=== PATIENT | female | born 1985 | race Caucasian/White ===

== ENCOUNTER 2017-08-03 17:52 | Emergency (ER) | payer SELFPAY ==
[~2017-08-03] VITALS: Ht 165.1 cm; Wt 83.9 kg
[2017-08-03] MEDS ORDERED: AMIT50TA3 (18:18)
[2017-08-03] MEDS ORDERED: LISI10TA2 (18:18)
[2017-08-03] MEDS ORDERED: AMLO5TAB2 (18:18)
--- NOTE | 2017-08-03 18:33 | ED Hip Pain/Injury ---
General Chief Complaint: Hip/Pelvic Problems Stated Complaint: LEFT HIP PAIN History of Present Illness Time seen by provider: 18:15 Initial Comments Patient reports chronic history of left hip pain. Became acutely worse in the last 24 hours. She denies any injury. She's had no analgesics prior to arrival. She reports all the pain to be on the lateral aspect of the left hip. Timing/Duration: getting worse, intermittent Severity: moderate Location: hip (L) Method of Injury: unknown Modifying Factors: Improves With Rest Associated Symptoms: denies symptoms Allergies and Home Medications Allergies Coded Allergies: clonidine (Verified Allergy, Unknown, 08/03/17) Home Medications Amitriptyline HCl 50 Mg Tablet, (Reported) Amlodipine Besylate 5 Mg Tablet, (Reported) Lisinopril 10 Mg Tablet, (Reported) Constitutional: no symptoms reported, see HPI Musculoskeletal: see HPI, muscle pain (left greater trochanter.) All Other Systems Reviewed Negative Unless Noted: Yes Past Exgwafm-Cdrvtz-Jwhxje Hx Patient Social History Alcohol Use: Occasionally Uses Recreational Drug Use: No Smoking Status: Current Everyday Smoker Recent Foreign Travel: No Contact w/Someone Who Travel: No Surgeries History of Surgeries: Yes Surgeries: Section, Gallbladder Respiratory History of Respiratory Disorde: No Cardiovascular History of Cardiac Disorders: Yes Cardiac Disorders: Hypertension Neurological History of Neurological Disord: Yes Neurological Disorders: Headaches /Migraines Genitourinary History of Genitourinary Disor: No Gastrointestinal History of Gastrointestinal Di: No Musculoskeletal History of Musculoskeletal Dis: Yes (CHRONIC HIP) Reviewed Nursing Assessment Reviewed/Agree w Nursing PMH: Yes Physical Exam Vital Signs Vital Sign - Last 12Hours 08/03/17 18:11 Temp 98.1 Pulse 94 Resp 18 B/P (MAP) 148/100 Pulse Ox 98 O2 Delivery Room Air Capillary Refill : General Appearance: No Apparent Distress, WD/WN Cardiovascular: Regular Rate, Rhythm, No Edema, Normal Peripheral Pulses Respiratory: Chest Non Tender, Lungs Clear Extremity: Normal Capillary Refill, Normal Inspection, Normal Range of Motion, Other (full range of motion left hip, neurovascular status intact left lower extremity symmetric with the right. Pain specifically over the greater trochanter of the left hip. Pain increases with. Perform a stretching and hip abduction. Negative straight leg raising sign. No back or pelvis pain) Neurologic/Psychiatric: Alert, Oriented x3, No Motor/Sensory Deficits, Normal Mood/Affect Progress/Results/Core Measures Results/Orders Vital Signs/I&O Vital Sign - Last 12Hours 08/03/17 08/03/17 18:11 18:40 Temp 98.1 98.1 Pulse 94 94 Resp 18 18 B/P (MAP) 148/100 Pulse Ox 98 98 O2 Delivery Room Air Progress Note : Time: 18:15 Progress Note Initial evaluation completed. Educated an assisted patient with stretches to help with the IT band. Encouraged her to do ice massage with [place] cups, try [place] balm patches or ointment. Follow-up with primary care provider or consider or the referral for injections of the trochanteric bursa, If symptoms are not improving. Departure Impression Impression: Primary Impression: Trochanteric bursitis, left hip Disposition: HOME, SELF-CARE Condition: Stable Departure-Patient Inst. Decision time for Depature: 18:30 Referrals: PASCUAL ARCHER APRN (PCP) Primary Care Physician RENETTA MIDDLETON DO (Family) Primary Care Physician Patient Instructions: Hip Bursitis (DC) Add. Discharge Instructions: Ice to left hip 20 minutes every 2 hours. Alternate Tylenol 650 mg and ibuprofen 600 mg every 4 hours. Stretches to left hip every 2-3 hours, hold for 30 seconds. [place] balm ointment or patches If continued symptoms see primary care provider or referral to orthopedics for steroid injection Return to the emergency department for increased symptoms or new problems. All discharge instructions reviewed with patient and/or family. Voiced understanding. ASHLEY HENRY Aug 03, 2017 18:33
[2017-08-03 18:40] VITALS: BP 148/100
== END 2017-08-03 18:38 | disposition home or self-care (01) ==
LOC: EDUNIT# 17:52 → ER 17:55
DX: M70.72 Other bursitis of hip, left hip (principal); I10 Essential (primary) hypertension; G43.909 Migraine, unspecified, not intractable, without status migrainosus; Z87.59 Personal history of other complications of pregnancy, childbirth and the puerperium
CPT/HCPCS: 99283